=== PATIENT | male | born 1985 | race Two or more races ===

== ENCOUNTER 2024-06-25 05:18 | Emergency (ER) | payer MEDICAID ==
[~2024-06-25] VITALS: Ht 167.6 cm; Wt 63.5 kg
[2024-06-25 06:29] LABS: BASOPHILS % (AUTO) 0.5 % (0.0-2.0); EOSINOPHILS % (AUTO) 0.2 % (0.0-6.0); HEMATOCRIT 44 % (39-51); HEMOGLOBIN 14.6 g/dL (13.5-17.5); LYMPHOCYTES # (AUTO) 1.2 K/uL (0.8-4.8); LYMPHOCYTES % (AUTO) 14.9 % (20.0-44.0); MEAN CORPUSCULAR HEMOGLOBIN 31 PG (26.0-33.0); MEAN CORPUSCULAR HGB CONC 33 g/dl (31.0-36.0); MEAN CORPUSCULAR VOLUME 93 fL (80-96); MONOCYTES # (AUTO) 0.6 K/uL (0.1-1.30); NEUTROPHILS # (AUTO) 6.1 K/uL (1.8-8.9); NEUTROPHILS % (AUTO) 76.4 % (43.0-81.0); PLATELET COUNT (AUTO) 298 K/uL (150-450); RED BLOOD CELL COUNT(AUTO) 4.71 MIL/uL (4.5-6.0); RED CELL DISTRIBUTION WIDTH 13.5 % (11.5-15.0)
[2024-06-25] MEDS ORDERED: TDAP [DIPH/PERTUSSIS/TET] 0.5 ML VIAL IM ONE (06:29)
[2024-06-25] MEDS: TDAP [DIPH/PERTUSSIS/TET] 0.5 ML VIAL IM ONE (06:30)
[2024-06-25 06:38] LABS: CALCIUM, SERUM 8.9 mg/dL (8.5-10.1); CARBON DIOXIDE 30 mmol/L (21-32); CHLORIDE 103 mmol/L (98-107); CREATININE 0.8 mg/dL (0.6-1.3); GLUCOSE 109 mg/dL (74-106); POTASSIUM 3.7 mmol/L (3.5-5.1); SODIUM SERUM 139 mmol/L (136-145); UREA NITROGEN, BLOOD 5 mg/dL (7-18)
[2024-06-25 06:44] LABS: ALANINE AMINOTRANSFERASE 22 U/L (12-78); ALBUMIN 4.7 g/dL (3.4-5.0); ALKALINE PHOSPHATASE 39 U/L (46-116); ASPARTATE AMINOTRANSFERASE 16 U/L (15-37); BILIRUBIN,DIRECT 0.2 mg/dL (0.0-0.2); BILIRUBIN,TOTAL 0.6 mg/dL (0.2-1.0); TOTAL PROTEIN, SERUM 8.3 g/dL (6.4-8.2)
[2024-06-25] MEDS ORDERED: LIDOCAINE 1%-EPI 1:100,000 20 ML VIAL ONE (07:36)
[2024-06-25] MEDS: LIDOCAINE 1%-EPI 1:100,000 20 ML VIAL TP ONE (07:40)
[2024-06-25] MEDS ORDERED: ACETAMINOPHEN 325 MG TABLET ONE (07:42)
[2024-06-25] MEDS: ACETAMINOPHEN 325 MG TABLET PO ONE (07:46)
[2024-06-25 10:07] VITALS: BP 129/80; TEMP 97.7; O2SAT 98
== END 2024-06-25 10:08 | disposition home or self-care (01) ==
LOC: ER 05:22
DX: S01.511A Laceration without foreign body of lip, initial encounter (principal); R55 Syncope and collapse; R07.9 Chest pain, unspecified; M25.552 Pain in left hip; M25.532 Pain in left wrist; E11.9 Type 2 diabetes mellitus without complications; F32.A Depression, unspecified; F43.10 Post-traumatic stress disorder, unspecified; G44.309 Post-traumatic headache, unspecified, not intractable; W18.09XA Striking against other object with subsequent fall, initial encounter; Y93.89 Activity, other specified; Y92.89 Other specified places as the place of occurrence of the external cause; Y99.8 Other external cause status
CPT/HCPCS: 99285; 40650; 70450; 71045; 90471; 90715; 73503; 73110; 85025; 80048; 80076; 36415; 84484 ×2; 93005; A6403; J3490; 73502

== ENCOUNTER 2024-08-12 07:31 | Emergency (ER) | payer MEDICAID ==
[~2024-08-12] VITALS: Ht 165.1 cm; Wt 63.5 kg
[2024-08-12 08:22] VITALS: BP 118/76; TEMP 97.8; O2SAT 97
[2024-08-12] MEDS ORDERED: IBUPROFEN 600 MG TABLET ONE (09:06)
[2024-08-12] MEDS: IBUPROFEN 600 MG TABLET PO ONE (09:08)
[2024-08-12] MEDS ORDERED: IBUP-1490 PO (09:44)
== END 2024-08-12 10:13 | disposition home or self-care (01) ==
LOC: ER 07:40
DX: S00.83XA Contusion of other part of head, initial encounter (principal); S20.212A Contusion of left front wall of thorax, initial encounter; W21.02XA Struck by soccer ball, initial encounter; Y93.89 Activity, other specified; Y92.89 Other specified places as the place of occurrence of the external cause; Y99.8 Other external cause status
CPT/HCPCS: 70486-TC; 71250-TC